=== PATIENT | female | born 1930 | race Caucasian/White ===

== ENCOUNTER 2016-06-19 19:59 | Emergency (ER) | payer MEDICARE | END 2016-06-19 21:12 | disposition home or self-care (01) | LOC: ED 19:59 | DX: R55 Syncope and collapse (principal); E78.5 Hyperlipidemia, unspecified; F03.90 Unspecified dementia, unspecified severity, without behavioral disturbance, psychotic disturbance, mood disturbance, and anxiety; Z79.899 Other long term (current) drug therapy; Z79.82 Long term (current) use of aspirin ==